=== PATIENT | female | born 1930 | race Hispanic/Latino ===

== ENCOUNTER 2016-07-29 19:35 | Emergency (ER) | payer MEDICARE, MEDICAID ==
[2016-07-29 20:40] VITALS: TEMP 99.7
--- NOTE | 2016-07-29 20:40 | ED.PDOC ---
History of Present Illness - General Chief Complaint: General Stated Complaint: COUGH AND WEAKNESS Time Seen by Provider: 07/29/16 20:26 Source: patient, family - History of Present Illness Initial Comments: SHE IS HERE WITH A THREE DAY HISTORY OF COUGH W/O FEVER AND NOW WEAKNESS AND SEVERAL EPISODES OF DIARRHEA. Timing/Duration: other - THREE DAYS Severity: moderate Improving Factors: nothing Worsening Factors: nothing Associated Symptoms: cough, loss of appetite, shortness of breath, weakness Allergies/Adverse Reactions: Allergies NO KNOWN ALLERGY Allergy (Verified 08/13/12 09:10) Home Medications: Ambulatory Orders Levofloxacin [Levaquin] 500 mg PO DAILY #10 tab 07/30/16 Metoprolol Succinate [Metoprolol Succinate ER] 25 mg PO DAILY #30 tab 07/30/16 Review of Systems - Review of Systems Constitutional: States: weakness EENTM: States: no symptoms reported Respiratory: States: cough, short of breath Cardiology: States: no symptoms reported. Denies: chest pain Gastrointestinal/Abdominal: States: diarrhea. Denies: abdominal pain, vomiting Genitourinary: States: no symptoms reported Musculoskeletal: States: no symptoms reported Skin: States: no symptoms reported Neurological: States: no symptoms reported Endocrine: States: no symptoms reported Hematologic/Lymphatic: States: no symptoms reported Past Medical History (General) - Patient Medical History Hx Dementia: Yes Hx Cancer: No - Vaccination History Hx Tetanus, Diphtheria Vaccination: Yes Hx Influenza Vaccination: Yes Hx Pneumococcal Vaccination: Yes - Social History Hx Alcohol Use: No Hx Substance Use: No Hx Depression: Yes Family Medical History - Family History Mother Family History: Unknown Physical Exam - Physical Exam General Appearance: Alert, Anxious Eye Exam: bilateral normal Ears, Nose, Throat: hearing grossly normal Neck: non-tender, full range of motion, supple Respiratory: chest non-tender, lungs clear, normal breath sounds, no respiratory distress, no accessory muscle use Cardiovascular/Chest: normal peripheral pulses, regular rate, rhythm, no edema, no gallop, no JVD, no murmur Gastrointestinal/Abdominal: normal bowel sounds, non tender, soft, no organomegaly, no pulsatile mass Back Exam: normal inspection, no CVA tenderness, no vertebral tenderness Extremity: normal range of motion Neurologic: stream control officer II-XII nml as tested, no motor/sensory deficits Progress - Results/Orders Results/Orders: THE CBC ANC CMP ARE RESULTED AND WNL. THE CXR IS ALSO NORMAL. UA IS PENDING. URINE IS REPORTED AND IT HAS 10-20 WBC'S. Departure - Departure Clinical Impression: Bronchitis Urinary tract infection Qualifiers: Urinary tract infection type: acute cystitis Hematuria presence: without hematuria Qualifier Code: (N30.00) Acute cystitis without hematuria Hypertension Qualifiers: Hypertension type: essential hypertension Qualifier Code: (I10) Essential ( primary) hypertension Time of Disposition: 00:23 Disposition: Discharge to Home or Self Care Departure Forms: ED Discharge - Pt. Copy, Patient Portal Self Enrollment Diet: resume usual diet Activity: increase activity as tolerated Referrals: Taty Castañeda NP [Primary Care Provider] - 1-2 Weeks Prescriptions: Levofloxacin [Levaquin] 500 mg PO DAILY #10 tab Metoprolol Succinate [Metoprolol Succinate ER] 25 mg PO DAILY #30 tab Home Medications: Ambulatory Orders Levofloxacin [Levaquin] 500 mg PO DAILY #10 tab 07/30/16 Metoprolol Succinate [Metoprolol Succinate ER] 25 mg PO DAILY #30 tab 07/30/16
--- NOTE | 2016-07-29 21:22 | RAD ---
EXAM DESCRIPTION: X-RAY CHEST- One View CLINICAL HISTORY: Cough and shortness of breath. COMPARISON: 08/12/2012 TECHNIQUE: Single view of the chest. FINDINGS: There are no discrete air space infiltrates, pneumothoraces or pleural effusions. The pulmonary vascularity is normal. The cardiomediastinal silhouette is stable. IMPRESSION: There are no acute lung parenchymal findings. Electronically signed by: Ady Newton MD 07/29/2016 21:20
[2016-07-29] MEDS ORDERED: SODIUM CHLORIDE 0.9% 500ML 500 ML IVS ONE (22:14)
[2016-07-29] MEDS ORDERED: cloNIDine HCL 0.1 MG TAB PO ONE (23:35)
[2016-07-30] MEDS ORDERED: cefTRIAXone SODIUM 1 GM in SODIUM CHL 0.9% 50ML MIN-BAG+ 50 ML IVPB ONE (00:19)
[2016-07-30] MEDS ORDERED: cefTRIAXone SODIUM 1 GM VIAL ONE (00:25)
[2016-07-30] MEDS ORDERED: SODIUM CHL 0.9% 50ML MIN-BAG+ 50 ML IVPB ONE (00:25)
[2016-07-30 01:53] VITALS: BP 166/72; O2SAT 95
== END 2016-07-30 01:40 | disposition home or self-care (01) ==
LOC: ER 19:35
DX: J40 Bronchitis, not specified as acute or chronic (principal); N30.00 Acute cystitis without hematuria; I10 Essential (primary) hypertension; F32.9 Major depressive disorder, single episode, unspecified
CPT/HCPCS: 36415; 71010; 80053; 81001; 85025; 87086; 87088; 87186; J0696; J7040; J7050

== ENCOUNTER → 2016-10-21 | Outpatient (CLI) | payer MEDICARE, MEDICAID | LOC: LAB.O 17:29 | PROVIDERS: ATTEND Nurse Practitioner Family | DX: R42 Dizziness and giddiness (principal); N30.90 Cystitis, unspecified without hematuria ==

== ENCOUNTER → 2016-10-25 | Outpatient (CLI) | payer MEDICARE, MEDICAID ==
--- NOTE | 2016-10-25 15:56 | CT ---
EXAM DESCRIPTION: Head CLINICAL HISTORY: R42, F02.80 COMPARISON: August 18, 2015 TECHNIQUE: Multiple axial images of the head without contrast FINDINGS: Involutional changes noted most pronounced within the frontoparietal lobes bilaterally. The ventricles are midline and unremarkable. Minimal periventricular white matter disease. Atherosclerotic disease noted. 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 It measures 5-6 mm in diameter. This is likely remained stable when compared to the prior study. No evidence of intracranial hemorrhage. The orbits and globes demonstrate no acute findings. The paranasal sinuses are clear. Mastoid air cells are unremarkable. IMPRESSION: 1. Today's exam demonstrates no new findings when compared to August 18, 2015. There remains cerebral atrophy and periventricular white matter disease. 2. No acute findings on today's study. Electronically signed by: Obed Durham MD 10/25/2016 3:55 PM CDT
== END | disposition home or self-care (01) ==
LOC: CT 09:07
PROVIDERS: ATTEND Nurse Practitioner Family
DX: F02.80 Dementia in other diseases classified elsewhere, unspecified severity, without behavioral disturbance, psychotic disturbance, mood disturbance, and anxiety (principal); R42 Dizziness and giddiness

== ENCOUNTER → 2016-12-05 | Outpatient (CLI) | payer MEDICARE, MEDICAID ==
--- NOTE | 2016-12-06 02:17 | RAD ---
Procedure: XR CHEST 2 VIEWS Exam Date: 12/05/2016 Ordering Provider: Taty Castañeda Clinical Indication: EDEMA Comparison: 07/29/2016 Findings: Cardiac silhouette: Within normal limits Pulmonary vasculature : Normal Mediastinal contour: Normal Aortic contour: Aortic calcification Focal lung consolidation: None Pleural effusion: None Pneumothorax: None Acute bony or soft tissue abnormality: None Impression: 1. No acute abnormalities in the chest. Electronically signed by: Panchito Dickson MD 12/06/2016 2:17 AM CDT
== END | disposition home or self-care (01) ==
LOC: YCFC.O 11:52
PROVIDERS: ATTEND Nurse Practitioner Family
DX: E78.2 Mixed hyperlipidemia (principal); I10 Essential (primary) hypertension; R60.9 Edema, unspecified; R00.1 Bradycardia, unspecified

== ENCOUNTER → 2017-02-07 | Outpatient (CLI) | payer MEDICARE, MEDICAID | END | disposition home or self-care (01) | LOC: NC 14:29 | PROVIDERS: ATTEND Nurse Practitioner Family | DX: R30.0 Dysuria (principal) ==

== ENCOUNTER → 2017-04-10 | Outpatient (CLI) | payer MEDICARE, MEDICAID | LOC: RESP 12:57 | PROVIDERS: ATTEND Nuclear Medicine Nuclear Cardiology | DX: R42 Dizziness and giddiness (principal); R00.2 Palpitations ==

== ENCOUNTER → 2017-04-14 | Outpatient (CLI) | payer MEDICARE, MEDICAID | LOC: NC 13:00 | PROVIDERS: ATTEND General Practice | DX: R19.7 Diarrhea, unspecified (principal); R30.0 Dysuria ==

== ENCOUNTER → 2017-04-15 | Outpatient (CLI) | payer MEDICARE, MEDICAID | END | disposition home or self-care (01) | LOC: NC 13:44 | PROVIDERS: ATTEND General Practice | DX: R19.7 Diarrhea, unspecified (principal); R19.5 Other fecal abnormalities ==

== ENCOUNTER 2017-04-26 20:41 | Emergency (ER) | payer MEDICARE, MEDICAID ==
--- NOTE | 2017-04-26 21:20 | ED.PDOC ---
History of Present Illness - General Chief Complaint: General Stated Complaint: Pt had a coughing episode w/ vomiting then SOB Time Seen by Provider: 04/26/17 21:15 Source: RN notes reviewed, Vital Signs reviewed, family - Daughter Exam Limitations: no limitations - History of Present Illness Initial Comments: Family brought patient in due to SOB. She had an episode after eating of severe cough followed by vomiting. She continued to clear her throat for ~30 minutes then c/o SOB so daughter brought her in. She was concerned because they saw maths tutor last week and she was started on Eliquis due to stroke risk and Lasix for CHF. Timing/Duration: 1 hour Severity: moderate Improving Factors: rest Worsening Factors: nothing Associated Symptoms: cough, nausea/vomiting, shortness of breath Allergies/Adverse Reactions: Allergies NO KNOWN ALLERGY Allergy (Verified 08/13/12 09:10) Home Medications: Ambulatory Orders Donepezil Hydrochloride [Aricept] 10 mg PO DAILY 07/30/16 Escitalopram [Lexapro] 10 mg PO DAILY 07/30/16 Levofloxacin [Levaquin] 500 mg PO DAILY #10 tab 07/30/16 Metoprolol Succinate [Metoprolol Succinate ER] 25 mg PO DAILY #30 tab 07/30/16 Trazodone HCl 150 mg PO BEDTIME 07/30/16 raNITIdine HCL [Zantac] 150 mg PO DAILY 07/30/16 Review of Systems - Review of Systems Constitutional: States: no symptoms reported EENTM: States: no symptoms reported Respiratory: States: see HPI, cough, short of breath Cardiology: States: no symptoms reported Gastrointestinal/Abdominal: States: vomiting - X1 Musculoskeletal: States: no symptoms reported Skin: States: no symptoms reported Neurological: States: pre-existing deficit - 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 All other Systems: No Change from Baseline Past Medical History (General) - Patient Medical History Hx Seizures: No Hx Stroke: No Hx Dementia: Yes Hx Asthma: No Hx of COPD: No Hx Cardiac Disorders: No Hx Congestive Heart Failure: No Hx Pacemaker: No Hx Hypertension: Yes Hx Thyroid Disease: No Hx Diabetes: No Hx Gastroesophageal Reflux: No Hx Renal Disease: No Hx Cancer: No Hx of HIV: No Hx Hepatitis C: No Hx MRSA: No Surgical History: other - Vaccination History Hx Tetanus, Diphtheria Vaccination: No Hx Influenza Vaccination: No Hx Pneumococcal Vaccination: Yes Immunizations Up to Date: Yes - Social History Hx Tobacco Use: No Hx Alcohol Use: No Hx Substance Use: No Hx Depression: Yes - Female History Patient is a Female of Child Bearing Age (10 -59 yrs old): No Family Medical History - Family History Mother Family History: Unknown Physical Exam - Physical Exam General Appearance: Alert, Comfortable, No apparent distress, Well Developed, Well Groomed, Well Hydrated, Well Nourished Neck: supple, normal inspection Respiratory: lungs clear, normal breath sounds, no respiratory distress, no accessory muscle use Cardiovascular/Chest: normal peripheral pulses, regular rate, rhythm, no edema, no gallop, no murmur Peripheral Pulses: dorsalis pedis,right: 2+, dorsalis pedis,left: 2+ Gastrointestinal/Abdominal: normal bowel sounds, non tender, soft, no organomegaly, no pulsatile mass Extremity: normal range of motion, normal inspection, no pedal edema Neurologic: alert, normal mood/affect Skin Exam: normal color, warm/dry Progress - Progress Progress: 04/26/17 21:47 Discussed symptoms, exam and CXR results with daughter. Will follow up with PCP next week, sooner if needed Discussed vomiting most likely due to coughing episode. - EKG/XRAY/CT XRAY: chest - no acute process per Radiologist. Departure - Departure Clinical Impression: Cough Vomiting alone Qualifiers: Vomiting type: bilious vomiting Qualified Code(s): R11.14 - Bilious vomiting Hypertension Qualifiers: Hypertension type: essential hypertension Qualified Code(s): I10 - Essential ( primary) hypertension Time of Disposition: 21:49 Disposition: Discharge to Home or Self Care Condition: Good Departure Forms: ED Discharge - Pt. Copy, Patient Portal Self Enrollment Instructions: DI for Cough -- Adult Diet: resume usual diet Activity: increase activity as tolerated Referrals: Zabrina Hernandez NP [Family Provider] - 1-5 Days Home Medications: Ambulatory Orders Donepezil Hydrochloride [Aricept] 10 mg PO DAILY 07/30/16 Escitalopram [Lexapro] 10 mg PO DAILY 07/30/16 Levofloxacin [Levaquin] 500 mg PO DAILY #10 tab 07/30/16 Metoprolol Succinate [Metoprolol Succinate ER] 25 mg PO DAILY #30 tab 07/30/16 Trazodone HCl 150 mg PO BEDTIME 07/30/16 raNITIdine HCL [Zantac] 150 mg PO DAILY 07/30/16
--- NOTE | 2017-04-26 21:39 | RAD ---
Examination: XR CHEST 2 VIEWS dated 04/26/2017 9:16 PM CDT History: Cough w/ vomiting Comparison: 12/05/2016 Technique: Frontal and lateral views of the chest Findings: The lungs are clear bilaterally. No pneumothorax or pleural effusion. Aortic atherosclerosis. Stable cardiac silhouette. Impression: No focal airspace disease. Electronically signed by: Ariel Noguera MD 04/26/2017 9:38 PM CDT
[2017-04-26 21:58] VITALS: BP 172/79; TEMP 97.3; O2SAT 96
== END 2017-04-26 21:58 | disposition home or self-care (01) ==
LOC: ER 20:41
DX: R05 Cough (principal); R11.14 Bilious vomiting; I10 Essential (primary) hypertension; G30.9 Alzheimer's disease, unspecified; F02.80 Dementia in other diseases classified elsewhere, unspecified severity, without behavioral disturbance, psychotic disturbance, mood disturbance, and anxiety; Z79.899 Other long term (current) drug therapy; Z79.01 Long term (current) use of anticoagulants

== ENCOUNTER → 2017-05-05 | Outpatient (CLI) | payer MEDICARE, MEDICAID | END | disposition home or self-care (01) | LOC: NC 12:44 | PROVIDERS: ATTEND General Practice | DX: R60.0 Localized edema (principal) ==

== ENCOUNTER → 2017-06-20 | Outpatient (CLI) | payer MEDICARE, MEDICAID | END | disposition home or self-care (01) | LOC: NC 13:20 | PROVIDERS: ATTEND General Practice | DX: I10 Essential (primary) hypertension (principal) ==

== ENCOUNTER 2017-07-15 20:11 | Emergency (ER) | payer MEDICARE, MEDICAID ==
--- NOTE | 2017-07-15 21:38 | ED.PDOC ---
History of Present Illness - General Chief Complaint: Respiratory Problem Stated Complaint: coughing and fever Time Seen by Provider: 07/15/17 21:23 Source: family - daughter Exam Limitations: no limitations - History of Present Illness Comments: Valeri Gonzalez 87 y/o female brought by daughter with non productive cough , fever ,wheezing which started yesterday seen her primary Md was given zithromax, rocephin at the office today.Grandson with flu. Timing/Duration: yesterday Cough Quality/Degree: dry cough Possible Cause: no prior episodes Improving Factors: nothing Worsening Factors: nothing Associated Symptoms: wheezing Allergies/Adverse Reactions: Allergies NO KNOWN ALLERGY Allergy (Verified 07/15/17 20:58) Home Medications: Ambulatory Orders Donepezil Hydrochloride [Aricept] 10 mg PO DAILY 07/30/16 Escitalopram [Lexapro] 10 mg PO DAILY 07/30/16 Levofloxacin [Levaquin] 500 mg PO DAILY #10 tab 07/30/16 Metoprolol Succinate [Metoprolol Succinate ER] 25 mg PO DAILY #30 tab 07/30/16 Trazodone HCl 150 mg PO BEDTIME 07/30/16 raNITIdine HCL [Zantac] 150 mg PO DAILY 07/30/16 Oseltamivir Phosphate [Tamiflu] 75 mg PO BID #10 cap 07/15/17 Review of Systems - Review of Systems Constitutional: States: no symptoms reported EENTM: States: no symptoms reported Respiratory: States: see HPI Cardiology: States: no symptoms reported Gastrointestinal/Abdominal: States: no symptoms reported Genitourinary: States: no symptoms reported Musculoskeletal: States: no symptoms reported Skin: States: no symptoms reported Past Medical History (General) - Patient Medical History Hx Seizures: No Hx Stroke: No Hx Dementia: Yes Hx Asthma: No Hx of COPD: No Hx Cardiac Disorders: No Hx Congestive Heart Failure: No Hx Pacemaker: No Hx Hypertension: Yes Hx Thyroid Disease: No Hx Diabetes: No Hx Gastroesophageal Reflux: No Hx Renal Disease: No Hx Cancer: No Hx of HIV: No Hx Hepatitis C: No Hx MRSA: No Surgical History: other - hip - Vaccination History Hx Tetanus, Diphtheria Vaccination: No Hx Influenza Vaccination: No Hx Pneumococcal Vaccination: Yes - Social History Hx Tobacco Use: No Hx Alcohol Use: No Hx Substance Use: No Hx Depression: Yes Family Medical History - Family History Mother Family History: Unknown Hx Family Hypertension: Yes - parents Physical Exam - Physical Exam General Appearance: Alert, No apparent distress Eye Exam: bilateral normal ENT Exam: normal ENT inspection, pharynx normal Neck: full range of motion, supple Respiratory: chest non-tender, no respiratory distress, wheezing Cardiovascular/Chest: regular rate, rhythm, no murmur Gastrointestinal/Abdominal: non tender, soft, no organomegaly Extremity: no calf tenderness, pedal edema Neurologic: alert Skin Exam: normal color, warm/dry Lymphatic: no adenopathy Progress - Progress Progress: 07/15/17 23:10 Last Vital Signs Temp 98.3 F 07/15/17 22:34 Pulse 84 07/15/17 22:34 Resp 22 07/15/17 22:36 BP 177/80 07/15/17 22:34 Pulse Ox 93 L 07/15/17 22:34 - Results/Orders Results/Orders: Laboratory Tests 07/15/17 07/15/17 07/15/17 20:58 21:43 21:43 WBC 9.2 RBC 4.34 Hgb 13.4 Hct 39.8 MCV 91.5 MCH 30.9 MCHC 33.7 RDW 12.7 Plt Count 161 MPV 8.8 Absolute Neuts (auto) 8.20 H Absolute Lymphs (auto) 0.30 L Absolute Monos (auto) 0.30 Absolute Eos (auto) 0.30 Absolute Basos (auto) 0.00 Neutrophils % 89.9 H Lymphocytes % 3.4 L Monocytes % 3.3 Eosinophils % 3.1 Basophils % 0.3 Sodium 136 Potassium 3.8 Chloride 103 Carbon Dioxide 22 Anion Gap 14.8 BUN 19 H Creatinine 1.09 BUN/Creatinine Ratio 17.4 Random Glucose 127 H Serum Osmolality 275.8 Calcium 9.2 Group A Strep DNA Negative - EKG/XRAY/CT XRAY: chest - subtle consolidation L lung base Departure - Departure Clinical Impression: Viral respiratory illness Time of Disposition: 23:14 Disposition: Discharge to Home or Self Care Condition: Fair Departure Forms: ED Discharge - Pt. Copy, Patient Portal Self Enrollment Instructions: DI for Viral Upper Respiratory Infection -- Adult Referrals: JENNIFER JOHNSON [Primary Care Provider] - 1-2 Weeks Prescriptions: Oseltamivir Phosphate [Tamiflu] 75 mg PO BID #10 cap Home Medications: Ambulatory Orders Donepezil Hydrochloride [Aricept] 10 mg PO DAILY 07/30/16 Escitalopram [Lexapro] 10 mg PO DAILY 07/30/16 Levofloxacin [Levaquin] 500 mg PO DAILY #10 tab 07/30/16 Metoprolol Succinate [Metoprolol Succinate ER] 25 mg PO DAILY #30 tab 07/30/16 Trazodone HCl 150 mg PO BEDTIME 07/30/16 raNITIdine HCL [Zantac] 150 mg PO DAILY 07/30/16 Oseltamivir Phosphate [Tamiflu] 75 mg PO BID #10 cap 07/15/17 Additional Instructions: Continue with current medications;Follow up with primary Md 07/17/2017;Return to ER if symptoms worsens
[2017-07-15] MEDS ORDERED: IPRATROPIUM/ALBUTEROL 3 ML VIAL NEB ONE (21:49)
--- NOTE | 2017-07-15 22:23 | RAD ---
EXAM DESCRIPTION: Chest,1 View CLINICAL HISTORY: cough COMPARISON: 04/26/2017 FINDINGS: Cardiac silhouette is again mildly enlarged. There is consolidation at the left lung base. Lungs are otherwise clear. Visualized osseous structures are within normal limits. IMPRESSION: Subtle left lung base consolidation. Electronically signed by: Dima Bill 07/15/2017 10:22 PM [facility]
[2017-07-15] MEDS ORDERED: OSELTAMIVIR 75 MG CAP PO ONE (23:11)
[2017-07-15 23:44] VITALS: BP 172/82; TEMP 98.8; O2SAT 95
== END 2017-07-15 23:43 | disposition home or self-care (01) ==
LOC: ER 20:11
DX: J06.9 Acute upper respiratory infection, unspecified (principal); I10 Essential (primary) hypertension; F03.90 Unspecified dementia, unspecified severity, without behavioral disturbance, psychotic disturbance, mood disturbance, and anxiety; Z79.899 Other long term (current) drug therapy
CPT/HCPCS: 36415; 71010; 80048; 85025; 87070; 87651; 87804; 94640; J7620

== ENCOUNTER → 2017-07-29 | Outpatient (CLI) | payer MEDICARE, MEDICAID | END | disposition home or self-care (01) | LOC: NC 13:56 | PROVIDERS: ATTEND General Practice | DX: R19.7 Diarrhea, unspecified (principal) ==

== ENCOUNTER → 2017-08-13 | Outpatient (CLI) | payer MEDICARE, MEDICAID | LOC: LAB.O 10:31 | PROVIDERS: ATTEND Physician Assistant | DX: I48.0 Paroxysmal atrial fibrillation (principal); R00.1 Bradycardia, unspecified; R60.0 Localized edema; R06.02 Shortness of breath; R01.1 Cardiac murmur, unspecified ==

== ENCOUNTER 2017-08-19 11:44 | Observation (INO) | payer MEDICARE, MEDICAID ==
--- NOTE | 2017-08-19 12:33 | ED.PDOC ---
History of Present Illness - General Chief Complaint: Neuro Symptoms/Deficits Stated Complaint: "loopy",unable to walk Time Seen by Provider: 08/19/17 11:56 Source: family Exam Limitations: no limitations - History of Present Illness Initial Comments: Valeri Gonzalez 87 y/o female brought by family since she is unable to stand up today and gait getting more unsteady uses walker for ambulation but unable to do it .No slurred speech,no blurry vision,unable to put food in her mouth today.Had not been sleeping well at night family stated that she keeps talking the last 3 night even after shutting eyes and agitated no combative.Has been diagnosed with dementia 9 years ago.Had been hospitalized for flu illness at [facility] x 4 days discharge . Timing/Duration: changing over time, intermittent, other - 3 days see hpi Severity: moderate Improving Factors: nothing Worsening Factors: nothing Associated Symptoms: other - see hpi Allergies/Adverse Reactions: Allergies NO KNOWN ALLERGY Allergy (Verified 07/15/17 20:58) Home Medications: Ambulatory Orders Donepezil Hydrochloride [Aricept] 10 mg PO BEDTIME 07/30/16 Escitalopram [Lexapro] 20 mg PO DAILY 07/30/16 Trazodone HCl 0.5 - 1 mg PO BEDTIME 07/30/16 Albuterol Inhaler [Ventolin Hfa Inhaler] 1 puff INH TID 08/19/17 Amlodipine Besylate 10 mg PO DAILY 08/19/17 Apixaban [Eliquis] 2.5 mg PO BID 08/19/17 Dorzolamide 2% Ophth [Trusopt Opthalmic Drops] 1 drop BOTH_EYES BID 08/19/17 Hydrochlorothiazide 7.25 mg PO DAILY 08/19/17 Ipratropium/Albuterol [Duoneb] 3 ml NEB PRN 08/19/17 LORazepam [Ativan] 0.25 mg PO BEDTIME 08/19/17 Lasix 08/19/17 Brainard-3 Fatty Acids [Brainard-3] 1 cap PO DAILY 08/19/17 Omeprazole 40 mg PO DAILY 08/19/17 Potassium 08/19/17 Travoprost [Travatan Z] 1 drop BOTH_EYES DAILY 08/19/17 Review of Systems - Review of Systems Constitutional: States: see HPI, weakness EENTM: States: no symptoms reported Respiratory: States: no symptoms reported Cardiology: States: no symptoms reported Gastrointestinal/Abdominal: States: no symptoms reported Genitourinary: States: no symptoms reported Musculoskeletal: States: no symptoms reported Skin: States: no symptoms reported Neurological: States: see HPI Endocrine: States: no symptoms reported All other Systems: Reviewed and Negative, No Change from Baseline Past Medical History (General) - Patient Medical History Hx Seizures: No Hx Stroke: No Hx Dementia: Yes Hx Asthma: No Hx of COPD: No Hx Cardiac Disorders: Yes - a fib Hx Congestive Heart Failure: Yes Hx Pacemaker: No Hx Hypertension: Yes Hx Thyroid Disease: No Hx Diabetes: No Hx Gastroesophageal Reflux: No Hx Renal Disease: No Hx Cancer: No Hx of HIV: No Hx Hepatitis C: No Hx MRSA: No Hx Other PMH: Yes - dementia Surgical History: other - hip - Vaccination History Hx Tetanus, Diphtheria Vaccination: No Hx Influenza Vaccination: No Hx Pneumococcal Vaccination: Yes - Social History Hx Tobacco Use: No Hx Alcohol Use: No Hx Substance Use: No Hx Depression: Yes Hx Physical Abuse: No Hx Emotional Abuse: No Hx Suspected Abuse: No Family Medical History - Family History Mother Family History: Unknown Hx Family Hypertension: Yes - parents Physical Exam - Physical Exam General Appearance: Alert, No apparent distress Eye Exam: bilateral normal Ears, Nose, Throat: hearing grossly normal, normal ENT inspection, normal pharynx Neck: non-tender, full range of motion, supple Respiratory: chest non-tender, lungs clear, normal breath sounds, no respiratory distress Cardiovascular/Chest: normal peripheral pulses, regular rate, rhythm, no murmur Peripheral Pulses: radial,right: 2+, radial,left: 2+ Gastrointestinal/Abdominal: normal bowel sounds, non tender, soft, no organomegaly Back Exam: normal inspection, no CVA tenderness, no vertebral tenderness Extremity: no pedal edema, no calf tenderness Neurologic: alert, normal mood/affect, disoriented x 3 - person /place, other - negative pronator drift Skin Exam: normal color, warm/dry Lymphatic: no adenopathy Progress - Progress Progress: 08/19/17 13:08 Last Vital Signs Temp 97.9 F 08/19/17 11:59 Pulse 62 08/19/17 11:59 Resp 20 08/19/17 11:59 BP 141/69 08/19/17 11:59 Pulse Ox 97 08/19/17 11:59 - Results/Orders Results/Orders: Last Vital Signs Temp 97.9 F 08/19/17 11:59 Pulse 63 08/19/17 15:00 Resp 20 08/19/17 15:00 BP 156/63 08/19/17 15:00 Pulse Ox 97 08/19/17 15:00 Laboratory Tests 08/19/17 08/19/17 08/19/17 12:57 12:57 12:57 WBC 6.3 RBC 4.42 Hgb 13.3 Hct 40.3 MCV 91.1 MCH 30.1 MCHC 33.0 RDW 13.4 Plt Count 160 MPV 8.9 Absolute Neuts (auto) 4.50 Absolute Lymphs (auto) 1.10 Absolute Monos (auto) 0.30 Absolute Eos (auto) 0.30 Absolute Basos (auto) 0.10 Neutrophils % 72.1 Lymphocytes % 16.9 L Monocytes % 4.9 Eosinophils % 5.2 H Basophils % 0.9 PT 14.7 H INR 1.300 PTT (SP) 39.1 H D-Dimer, Quantitative < 200 Sodium 138 Potassium 4.1 Chloride 102 Carbon Dioxide 28 Anion Gap 12.1 BUN 22 H Creatinine 1.22 BUN/Creatinine Ratio 18.0 Random Glucose 101 Serum Osmolality 279.1 Lactic Acid 1.1 Calcium 9.5 Magnesium 1.8 Total Bilirubin 0.6 Direct Bilirubin 0.2 Indirect Bilirubin 0.4 AST 27 ALT 18 Alkaline Phosphatase 65 Creatine Kinase 25 L CK-MB (CK-2) 0.8 CK-MB (CK-2) % Not Reportable Troponin I < 0.02 Serum Total Protein 7.1 Albumin 4.0 Urine Color Urine Appearance Urine pH Ur Specific [place] Urine Protein Urine Glucose (UA) Urine Ketones Urine Blood Urine Nitrite Urine Bilirubin Urine Urobilinogen Ur Leukocyte Esterase Urine RBC Urine WBC Ur Epithelial Cells Amorphous Sediment Urine Bacteria 08/19/17 13:50 WBC RBC Hgb Hct MCV MCH MCHC RDW Plt Count MPV Absolute Neuts (auto) Absolute Lymphs (auto) Absolute Monos (auto) Absolute Eos (auto) Absolute Basos (auto) Neutrophils % Lymphocytes % Monocytes % Eosinophils % Basophils % PT INR PTT (SP) D-Dimer, Quantitative Sodium Potassium Chloride Carbon Dioxide Anion Gap BUN Creatinine BUN/Creatinine Ratio Random Glucose Serum Osmolality Lactic Acid Calcium Magnesium Total Bilirubin Direct Bilirubin Indirect Bilirubin AST ALT Alkaline Phosphatase Creatine Kinase CK-MB (CK-2) CK-MB (CK-2) % Troponin I Serum Total Protein Albumin Urine Color Yellow Urine Appearance Clear Urine pH 6.0 Ur Specific [place] 1.015 Urine Protein Negative Urine Glucose (UA) Negative Urine Ketones Negative Urine Blood Negative Urine Nitrite Negative Urine Bilirubin Negative Urine Urobilinogen 0.2 Ur Leukocyte Esterase Negative Urine RBC 0-1 Urine WBC 0-1 Ur Epithelial Cells 1-3 Amorphous Sediment 1+ Urine Bacteria Rare - EKG/XRAY/CT EKG: Sinus, no ST T wave changes Comments: Heart rate-59 XRAY: chest - cardiomegaly no vascular congestion CT Ordered: Yes - head w/o-no acute abnormalities noted Departure - Departure Clinical Impression: History of atrial fibrillation, History of dementia, Weakness of both lower extremities Altered mental status, unspecified Qualifiers: Altered mental status type: disorientation Qualified Code(s): R41.0 - Disorientation, unspecified Time of Disposition: 15:13 Disposition: Admit Patient Departure Forms: Patient Portal Self Enrollment Referrals: Taty Castañeda NP [Primary Care Provider] - 1-2 Weeks Home Medications: Ambulatory Orders Donepezil Hydrochloride [Aricept] 10 mg PO BEDTIME 07/30/16 Escitalopram [Lexapro] 20 mg PO DAILY 07/30/16 Trazodone HCl 0.5 - 1 mg PO BEDTIME 07/30/16 Albuterol Inhaler [Ventolin Hfa Inhaler] 1 puff INH TID 08/19/17 Amlodipine Besylate 10 mg PO DAILY 08/19/17 Apixaban [Eliquis] 2.5 mg PO BID 08/19/17 Dorzolamide 2% Ophth [Trusopt Opthalmic Drops] 1 drop BOTH_EYES BID 08/19/17 Hydrochlorothiazide 7.25 mg PO DAILY 08/19/17 Ipratropium/Albuterol [Duoneb] 3 ml NEB PRN 08/19/17 LORazepam [Ativan] 0.25 mg PO BEDTIME 08/19/17 Lasix 08/19/17 Brainard-3 Fatty Acids [Brainard-3] 1 cap PO DAILY 08/19/17 Omeprazole 40 mg PO DAILY 08/19/17 Potassium 08/19/17 Travoprost [Travatan Z] 1 drop BOTH_EYES DAILY 08/19/17 Decision To Admit - Decistion To Admit Decision to Admit Reason: Admit from ER Decision to Admit Date: 08/19/17 - D/W Dr. Santana-Hospitalist Decision to Admit Time: 15:11
--- NOTE | 2017-08-19 13:14 | RAD ---
EXAM DESCRIPTION: Chest,1 View CLINICAL HISTORY: ams COMPARISON: July 15, 2017 IMPRESSION: Single AP portable upright view of the chest shows mild enlargement of the cardiac silhouette without pulmonary vascular congestion. Lungs are normally aerated and clear. No obvious pleural effusion or pneumothorax is seen. Electronically signed by: Landry Parker MD 08/19/2017 1:13 PM [employer]
--- NOTE | 2017-08-19 13:16 | CT ---
EXAM DESCRIPTION: Head CLINICAL HISTORY: AMS COMPARISON: October 25, 2016 TECHNIQUE: Noncontrast transaxial CT images of the head are obtained from base to vertex. Images are mild to moderately degraded by patient motion artifact. This exam was performed according to our departmental dose-optimization program, which includes automated exposure control, adjustment of the mA and/or kV according to patient size and/or use of iterative reconstruction technique. FINDINGS: The midline structures are not displaced. Sulci are age-appropriate. There are areas of decreased attenuation in the periventricular white matter and the white matter of the centrum semiovale. There is no evidence of mass, mass-effect, hydrocephalus, or acute intracranial hemorrhage. No abnormal extra axial fluid collection is seen. Bone windows show no evidence of depressed skull fracture. Severe calcifications of the intracranial carotid arteries and vertebral basilar arteries is seen. The visualized paranasal sinuses are unremarkable. Postsurgical changes in the right orbit are seen. IMPRESSION: 1. Age-appropriate atrophy with evidence of old small vessel ischemic type changes seen. 2. No acute abnormality is seen on noncontrast CT of the head. Electronically signed by: Landry Parker MD 08/19/2017 1:15 PM [facility]
--- NOTE | 2017-08-19 15:27 | HP ---
HISTORY OF PRESENT ILLNESS: This 87 year-old female is placed in the hospital for observation from the Emergency Room because of a significant altered level of consciousness and a change in her ability to function. She has been unable to walk and has difficulty being transferred from bed to chair. A lot of her symptoms have worsened today but she has had a decreased ability to fully communicate for another couple of weeks. She has had fairly significant decreased eating and drinking today compared to normal. Her level of consciousness is also decreased and has been steadily declining over the last one to two weeks according to the family. She has had spells in the past where she has had significant deteriorated mental status but this seems to be a little more severe than usual. In the Emergency Room there was no evidence of urinary tract infection, electrolyte disturbance or underlying infectious condition. Further observation necessary. PAST MEDICAL HISTORY: Spells with worsening dementia. Weakness is getting worse. Inability to walk noted earlier today. History of congestive heart failure of undetermined etiology. PAST SURGICAL HISTORY: 1. Left hip fracture requiring nail repair. CURRENT MEDICATIONS: Please refer to nurses notes. ALLERGIES: NONE KNOWN. FAMILY HISTORY: Negative. 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 REVIEW OF SYSTEMS: GENERAL: No significant weight change. No fever or chills. HEENT: No hearing or vision disturbances. LUNGS: Occasional shortness of breath with cough. No hemoptysis, no sputum. CARDIOVASCULAR: No significant palpitations or chest pains. GI: Appetite is decreased today. No diarrhea or blood in the stools. : No dysuria. EXTREMITIES: Fairly well formed, though having difficulty walking because of severe weakness. NEUROLOGICAL: No significant headaches. PHYSICAL EXAMINATION: VITAL SIGNS: Afebrile. Pulse 58, blood pressure 144/72, pulse oximetry 97% on room air. Weight 58.3 kilos. GENERAL: The patient is confused and appears to be not able to fully answer questions, though she does approach the questions and does give appropriate answers generally. Her family is present and they state there has been a significant deterioration in her ability to communicate and interact. Unable to get her up and walk because of her inability to use her lower extremities in walking. CHEST: Somewhat diminished breath sounds and occasional cough. No sputum. CARDIOVASCULAR: Heart tones are fairly regular without any significant gallops. ABDOMEN: Soft, no tenderness or organomegaly at this time. SKIN: Appears to be fairly good. NEUROLOGIC: The patient is somewhat disoriented to place and time. ASSESSMENT: 1. Altered level of consciousness, fairly acute onset, probably secondary to a significant exacerbation of her chronic dementia. 2. History of chronic Alzheimer's dementia with an acute exacerbation and increased deformity and disability. 3. Weakness. 4. Dystaxia and difficulty walking because of the underlying deteriorated state. 5. History of congestive heart failure of undetermined etiology, currently stable and symptom free. LABORATORY: Potassium 4.1, BUN 22, creatinine 1.2, calcium 9.5, lactic acid 1.1. Liver enzymes normal. Troponin 0. Beta natriuretic peptide 215, white count 6,300. Hemoglobin 13.3. INR 1.3. Urinalysis generally clean. Heat CT shows advanced dementia with cerebral atrophy. Chest x-ray shows no acute findings at this time. PLAN: Will observe closely tonight. Try a mechanical soft with ground meat diet. Perform repeat MRI of the head in the morning which will supplement the CT scan showing significant cerebral atrophy and to compare to a previous MRI about two years previously. Anticipate discharge home with further outpatient management and followup in the morning as clinical condition is stabilized. Observe closely. #[id number] [facility]ITAL[facility]
[2017-08-19] MEDS ORDERED: MAGNESIUM HYDROXIDE 30 ML UD PO PRN (17:36)
[2017-08-19] MEDS ORDERED: SODIUM CHLORIDE 0.9% (FLUSH) 10 ML SYG IV PRN (17:36)
[2017-08-19] MEDS ORDERED: LEVALBUTEROL NEBS 1.25 MG/3 ML VIAL NEB PRN (17:36)
[2017-08-19] MEDS ORDERED: SODIUM CHLORIDE 0.9% 1000ML 1,000 ML IVS PRN (17:47)
[2017-08-19] MEDS ORDERED: IV SET AND CAP CHANGE INJ INJ SCH (18:00)
[2017-08-20] MEDS ORDERED: OMEPRAZOLE CAP 20 MG CAP PO SCH (06:30)
[2017-08-20] MEDS ORDERED: LORazepam 0.5 MG TAB PO PRN (09:10)
[2017-08-20] MEDS ORDERED: DORZOLAMIDE 2% OPHTH SOL 1 DROP BOTH_EYES SCH (09:15)
[2017-08-20] MEDS ORDERED: NON-FORMULARY MEDICATION 1 EA MIS (Omeprazole [Omeprazole] 40 MG) PO SCH (09:15)
[2017-08-20] MEDS ORDERED: NON-FORMULARY MEDICATION 1 EA MIS (Travoprost [Travatan Z] 1 DROP) BOTH_EYES SCH (09:30)
[2017-08-20] MEDS ORDERED: ESCITALOPRAM 10 MG TAB PO SCH (09:30)
[2017-08-20] MEDS ORDERED: APIXABAN 2.5 MG TAB PO SCH (09:30)
[2017-08-20 10:26] VITALS: BP 148/76
--- NOTE | 2017-08-20 13:33 | MRI ---
EXAM DESCRIPTION: Brain w/oContrast CLINICAL HISTORY: worsening dementia COMPARISON: CT the head dated 2016 TECHNIQUE: Multiplanar multisequence noncontrast imaging FINDINGS: No midline congenital brain anomaly is detected. The paranasal sinuses and orbits as imaged are normal. Normal flow void is observed in the cerebral vasculature. No diffusion-weighted abnormality is seen. Mild periventricular increased T2 signal is observed consistent with ischemic demyelination. Prominence of the ventricular system and cortical sulci are observed consistent with atrophy. IMPRESSION: Senescent changes are observed. No acute parenchymal pathology is detected. Electronically signed by: Abisai Flores MD 08/20/2017 1:31 PM [facility]
[2017-08-20 14:01] VITALS: TEMP 97.9; O2SAT 95
--- NOTE | 2017-08-20 15:23 | DS ---
DISCHARGE DIAGNOSIS: 1. Altered level of consciousness of fairly acute onset probably secondary to exacerbation of her chronic dementia. 2. History of chronic Alzheimer's dementia with an acute exacerbation with associated increased deformity and disability. 3. Generalized weakness probably secondary to the significant dementia with associated deconditioning. 4. Dystaxia and difficulty walking probably because of the underlying deteriorated state. 5. History of congestive heart failure of undetermined etiology currently stable. BNP is normal. 6. Hypokalemia with the patient started on supplementation and continued. HISTORY OF PRESENT ILLNESS: This 87 year-old female was placed in the hospital for overnight observation because of significant alteration in her level of consciousness and change in her ability to function. She is at home with family members caring for her faithfully. She has been unable to walk and is having difficulty transferring from bed to chair. Some of these symptoms are much worse and more of an acute nature and was of a concern, and for this reason the patient was placed in the hospital to make sure she was not worsening precipitously in order to have further documentation with an MRI of the brain this morning prior to discharge. Special attention to rule out electrolyte disturbance, urinary tract infection or pneumonia, etc., possibly contributing to her dysfunction but none was found. LABORATORY STUDIES: White count of 9,100, hemoglobin 12.8, INR shows 1.3, D- dimer normal. Chemistry shows potassium dropping from 4.1 to 3.5 while BUN is 20, creatinine 1.01, glucose 99. Beta natriuretic peptide is 97, lactic acid 1.1. Urinalysis generally clean. No cultures obtained. RADIOLOGY: Chest x-ray shows no acute findings. CT of the head as well as a brain MRI does reveal chronic cerebral atrophy with some ischemic encephalopathy noted. No acute abnormalities noted. HOSPITAL COURSE: The patient was resting and according to the family was functioning a little better at the time of discharge than she was upon admission yesterday. She was ready to continue with outpatient management and followup on the day of discharge. PLAN: The patient is to be discharged home to have followup with Taty Castañeda in the local clinic in 1 to 2 weeks. She is to call for an appointment. Special attention to avoid falls and choking. She may use thickened fluids. See home medications. She is sent home with copies of x-rays and lab studies from her hospital stay. Suggest followup with neurology clinic with Dr. Roberto. Breathe deeply and good nutrition important. Return if not improving. #[id number] [facility]
[2017-08-21] MEDS ORDERED: POTASSIUM CHLORIDE 20 MEQ TAB PO SCH (07:30)
== END 2017-08-20 15:06 | disposition home or self-care (01) ==
LOC: ER 11:44 → MS 15:27 → INTOOBSV 15:27
PROVIDERS: ADMIT Emergency Medicine; ATTEND Emergency Medicine
DX: R41.82 Altered mental status, unspecified (principal); G30.9 Alzheimer's disease, unspecified; F02.80 Dementia in other diseases classified elsewhere, unspecified severity, without behavioral disturbance, psychotic disturbance, mood disturbance, and anxiety; R53.1 Weakness; R27.0 Ataxia, unspecified; I50.9 Heart failure, unspecified; E87.6 Hypokalemia; Z79.899 Other long term (current) drug therapy
CPT/HCPCS: 36415 ×2; 70450; 70551; 71045; 80048 ×2; 80076; 81001; 82550; 82553; 83605; 83880; 84484; 85025 ×2; 85379; 85610; 85730; 93005; 94760; 97162; 97530; 99284; G0378; G8978; G8979; G8980; J7030

== ENCOUNTER → 2017-09-11 | Outpatient (CLI) | payer MEDICARE, MEDICAID | LOC: GRH 14:49 | PROVIDERS: ATTEND Family Medicine | DX: R30.9 Painful micturition, unspecified (principal) ==

== ENCOUNTER → 2018-01-13 | Outpatient (CLI) | payer OTHER | LOC: GRH 16:13 | PROVIDERS: ATTEND Family Medicine | DX: R30.9 Painful micturition, unspecified (principal) ==

== ENCOUNTER → 2018-06-16 | Outpatient (CLI) | payer MEDICARE, MEDICAID | LOC: GRHH 09:58 | PROVIDERS: ATTEND Family Medicine | DX: R30.0 Dysuria (principal) ==

== ENCOUNTER → 2018-10-27 | Outpatient (CLI) | payer MEDICARE, MEDICAID | LOC: GMAH 14:53 | PROVIDERS: ATTEND Family Medicine | DX: R35.0 Frequency of micturition (principal) ==

== ENCOUNTER → 2018-11-27 | Outpatient (CLI) | payer MEDICARE, MEDICAID | LOC: GRH 11:38 | PROVIDERS: ATTEND Family Medicine | DX: R31.9 Hematuria, unspecified (principal); R30.9 Painful micturition, unspecified ==

== ENCOUNTER → 2019-01-13 | Outpatient (CLI) | payer MEDICARE, MEDICAID | LOC: GRHH 13:22 | PROVIDERS: ATTEND Family Medicine | DX: R30.9 Painful micturition, unspecified (principal) ==

== ENCOUNTER → 2019-05-07 | Outpatient (CLI) | payer MEDICARE, MEDICAID | LOC: GRH 10:54 | PROVIDERS: ATTEND Family Medicine | DX: R30.9 Painful micturition, unspecified (principal) ==

== ENCOUNTER → 2019-05-27 | Outpatient (CLI) | payer MEDICARE, MEDICAID | LOC: GRH 10:25 | PROVIDERS: ATTEND Family Medicine | DX: R30.9 Painful micturition, unspecified (principal) ==